=== PATIENT | female | born 1965 | race Caucasian/White ===

== ENCOUNTER → 2016-06-06 | Outpatient (CLI) | payer OTHER ==
[~2016-06-06] MED LIST: CLARITIN-D 241 EACH PO; DILTIAZEM ER240 MG PO; FLONASE16 GM NASBOTH; LANOXIN125 MCG PO; VITAMIN D31000 UNIT PO
== END | disposition short-term general hospital (02) ==
LOC: CLCARD 10:06
DX: Z01.818 Encounter for other preprocedural examination (principal); I47.1 Supraventricular tachycardia